=== PATIENT | female | born 1985 | race Caucasian/White ===

== ENCOUNTER 2022-09-26 16:25 | Outpatient (CLI) | payer OTHER, SELFPAY | END 2022-09-26 16:26 | disposition home or self-care (01) | LOC: LKVREF 16:26 | PROVIDERS: PCP Emergency Medicine; Visit Provider Emergency Medicine | DX: R53.83 Other fatigue (principal); F41.9 Anxiety disorder, unspecified | CPT/HCPCS: 84439; 84443 ==

== ENCOUNTER 2023-01-22 17:54 | Outpatient (CLI) | payer OTHER, SELFPAY | END 2023-01-22 17:55 | disposition home or self-care (01) | PROVIDERS: PCP Emergency Medicine; Visit Provider Emergency Medicine | DX: R79.89 Other specified abnormal findings of blood chemistry (principal); R53.83 Other fatigue; E03.9 Hypothyroidism, unspecified | CPT/HCPCS: 84443 ==

== ENCOUNTER 2024-09-15 15:43 | Outpatient (CLI) | payer OTHER, SELFPAY ==
[2024-09-17 06:13] LABS: HPV Source Cervical; HPV, High Risk by TMA Not Detected
== END 2024-09-15 15:44 | disposition home or self-care (01) ==
PROVIDERS: PCP Emergency Medicine; Visit Provider Emergency Medicine
DX: E03.9 Hypothyroidism, unspecified (principal); R79.89 Other specified abnormal findings of blood chemistry; Z12.4 Encounter for screening for malignant neoplasm of cervix; Z11.51 Encounter for screening for human papillomavirus (HPV)
CPT/HCPCS: 84443; 87624; 87625; 88141; 88142

== ENCOUNTER 2024-12-01 13:24 | Outpatient (CLI) | payer OTHER, SELFPAY ==
--- NOTE | 2024-12-01 13:20 | CRLHL7_ITS ---
For Patients: As a result of the Century Cures Act, medical imaging exams and procedure reports are released immediately into your electronic medical record. You may view this report before your referring provider. If you have questions, please contact your health care provider. INDICATION: BILATERAL SCREENING MAMMOGRAM, ASYMPTOMATIC 38 F COMPARISON: Baseline TECHNIQUE: CC and MLO views were obtained. These mammographic images have been obtained using full-field digital technique. These mammographic images were interpreted with the benefit of computer aided detection and tomosynthesis. BREAST COMPOSITION: The breasts are heterogeneously dense, which may obscure small masses. FINDINGS: No suspicious findings. ASSESSMENT: BI-RADS 1 Negative RECOMMENDATION: Annual screening mammogram. A lay language report of this examination will be provided to the patient. Dictated by: Mahin Suazo MD @ 12/03/2024 13:19:26 (Electronically Signed)
== END 2024-12-01 13:25 | disposition home or self-care (01) ==
LOC: MAMMO 13:24
PROVIDERS: PCP Emergency Medicine; Visit Provider Emergency Medicine
DX: Z12.31 Encounter for screening mammogram for malignant neoplasm of breast (principal); R92.333 Mammographic heterogeneous density, bilateral breasts
CPT/HCPCS: 77063; 77067